=== PATIENT | male | born 2000 | race Caucasian/White ===

== ENCOUNTER 2024-12-22 12:06 | Outpatient (CLI) | payer BC, SELFPAY ==
[2024-12-22 15:27] LABS: GC DNA Amplified* NOT DETECTED (No Detected)
[2024-12-22 21:11] LABS: Chlamydia DNA Amplified* DETECTED (No Detected)
== END 2024-12-22 12:07 | disposition home or self-care (01) ==
LOC: NFLDUCREF 12:07
PROVIDERS: PCP Family Medicine; Visit Provider Physician Assistant
DX: Z11.3 Encounter for screening for infections with a predominantly sexual mode of transmission (principal)
CPT/HCPCS: 87491; 87591